=== PATIENT | male | born 1950 | race Caucasian/White ===

== ENCOUNTER → 2019-10-18 | Outpatient (CLI) | payer MEDICARE, OTHER ==
[~2019-10-18] MED LIST: ASPIRIN325 PO; ATORVASTATIN CA40 MG PO; HYDROCHLOROTH12.5 MG PO; OMEPRAZOLE20 MG PO; OXYCODONE HCL 55 MG PO; OXYCONTIN10 M1 PO; TOPROL XL50 MG PO; XARELTO10 MG PO; ZESTRIL10 MG PO
== END ==
LOC: M.LAB 05:11
DX: E87.6 Hypokalemia (principal)